=== PATIENT | female | born 1930 | race Caucasian/White ===

== ENCOUNTER → 2017-01-25 | Outpatient (REF) | payer MEDICARE ==
[2017-01-25 13:19] LABS: ALBUMIN 3.2 GM/DL (3.2-5.2); ALBUMIN/GLOBULIN RATIO 0.86 (1.00-1.93); ALKALINE PHOSPHATASE 115 U/L (45-117); ALT/SGPT 25 U/L (12-78); ANION GAP 9 MEQ/L (8-16); AST/SGOT 23 U/L (15-37); BILIRUBIN,TOTAL 0.3 MG/DL (0.2-1.0); BLOOD UREA NITROGEN 30 MG/DL (7-18); CALCIUM LEVEL 9.2 MG/DL (8.8-10.2); CARBON DIOXIDE LEVEL 27 MEQ/L (21-32); CHLORIDE LEVEL 109 MEQ/L (98-107); CHOLESTEROL LEVEL 233 MG/DL (<200); CREATININE FOR GFR 0.83 MG/DL (0.55-1.02); GLOMERULAR FILTRATION RATE > 60.0 (>32); GLUCOSE, FASTING 98 MG/DL (83-110); POTASSIUM SERUM 3.5 MEQ/L (3.5-5.1); SODIUM LEVEL 145 MEQ/L (136-145); TOTAL PROTEIN 6.9 GM/DL (6.4-8.2); TRIGLYCERIDES LEVEL 157 MG/DL (<150)
[2017-01-25 13:22] LABS: MEAN CORPUSCULAR HEMOGLOBIN 31.5 pg (27.0-33.0); MEAN CORPUSCULAR HGB CONC 33.9 g/dl (32.0-36.5); MEAN CORPUSCULAR VOLUME 93.1 fl (80.0-96.0); RED CELL DISTRIBUTION WIDTH 13.7 % (11.5-14.5)
== END ==
LOC: M SFHCADAM 08:59
PROVIDERS: ATTEND Family Medicine
DX: M35.3 Polymyalgia rheumatica (principal); I10 Essential (primary) hypertension; E78.5 Hyperlipidemia, unspecified; E55.9 Vitamin D deficiency, unspecified

== ENCOUNTER → 2017-04-21 | Outpatient (REF) | payer MEDICARE | LOC: M SFHCSACK 08:25 | PROVIDERS: ATTEND Family Medicine | DX: M35.3 Polymyalgia rheumatica (principal) ==

== ENCOUNTER → 2017-06-09 | Outpatient (REF) | payer MEDICARE ==
[2017-06-09 15:42] LABS: ANION GAP 11 MEQ/L (8-16); BLOOD UREA NITROGEN 23 MG/DL (7-18); CALCIUM LEVEL 9.5 MG/DL (8.8-10.2); CARBON DIOXIDE LEVEL 27 MEQ/L (21-32); CHLORIDE LEVEL 108 MEQ/L (98-107); CREATININE FOR GFR 0.67 MG/DL (0.55-1.02); GLOMERULAR FILTRATION RATE > 60.0 (>32); GLUCOSE, FASTING 83 MG/DL (83-110); POTASSIUM SERUM 3.8 MEQ/L (3.5-5.1); SODIUM LEVEL 146 MEQ/L (136-145)
== END ==
LOC: M SFHCSACK 09:38
PROVIDERS: ATTEND Family Medicine
DX: M35.3 Polymyalgia rheumatica (principal); I10 Essential (primary) hypertension

== ENCOUNTER → 2018-03-21 | Outpatient (REF) | payer MEDICARE ==
[2018-03-21 19:39] LABS: HEMATOCRIT 38.8 % (36.0-47.0); HEMOGLOBIN 12.7 g/dl (12.0-15.5); MEAN CORPUSCULAR HEMOGLOBIN 30.3 pg (27.0-33.0); MEAN CORPUSCULAR HGB CONC 32.7 g/dl (32.0-36.5); MEAN CORPUSCULAR VOLUME 92.6 fl (80.0-96.0); PLATELET COUNT, AUTOMATED 270 10^3/uL (150-450); RED BLOOD COUNT 4.19 10^6/uL (4.00-5.40); RED CELL DISTRIBUTION WIDTH 13.7 % (11.5-14.5); WHITE BLOOD COUNT 7.7 10^3/uL (4.0-10.0)
[2018-03-21 19:51] LABS: ALKALINE PHOSPHATASE 123 U/L (45-117); ALT/SGPT 25 U/L (12-78); ANION GAP 11 MEQ/L (8-16); AST/SGOT 21 U/L (7-37); BILIRUBIN,TOTAL 0.3 MG/DL (0.2-1.0); BLOOD UREA NITROGEN 24 MG/DL (7-18); CALCIUM LEVEL 9.5 MG/DL (8.8-10.2); CARBON DIOXIDE LEVEL 27 MEQ/L (21-32); CHLORIDE LEVEL 107 MEQ/L (98-107); CREATININE FOR GFR 0.71 MG/DL (0.55-1.30); GLOMERULAR FILTRATION RATE > 60.0 (>32); GLUCOSE, FASTING 85 MG/DL (70-100); POTASSIUM SERUM 3.9 MEQ/L (3.5-5.1); SODIUM LEVEL 145 MEQ/L (136-145)
[2018-03-21 19:52] LABS: ALBUMIN 3.4 GM/DL (3.2-5.2); ALBUMIN/GLOBULIN RATIO 0.87 (1.00-1.93); CHOLESTEROL LEVEL 262 MG/DL (<200); CHOLESTEROL RISK RATIO 4.596 (<5); FREE T4 1.08 NG/DL (0.76-1.46); HDL CHOLESTEROL 57 MG/DL (>40); LDL CHOLESTEROL 155.8 MG/DL (<100); NON-HDL-C 205 MG/DL; TOTAL PROTEIN 7.3 GM/DL (6.4-8.2); TRIGLYCERIDES LEVEL 246 MG/DL (<150)
[2018-03-21 20:22] LABS: TOTAL 25(OH) VITAMIN D 27.9 NG/ML (30.0-100.0)
[2018-03-21 20:48] LABS: ERYTHROCYTE SEDIMENTATION RATE 36 mm/hr (0-42)
== END ==
LOC: M SFHCADAM 11:53
DX: G25.0 Essential tremor (principal); M35.3 Polymyalgia rheumatica; E78.5 Hyperlipidemia, unspecified; E55.9 Vitamin D deficiency, unspecified; Z68.31 Body mass index [BMI] 31.0-31.9, adult
CPT/HCPCS: 84443